=== PATIENT | female | born 1960 | race Caucasian/White ===

== ENCOUNTER 2018-03-07 05:55 | Inpatient (IN) ==
[2018-03-07] MEDS ORDERED: Chlorhexidine Gluconate 2% 1 Pack (2 Cloths) TOPICAL ONE (06:22)
[2018-03-07] MEDS ORDERED: Metoprolol Tartrate 25 MG Tablet PO ONE (06:22)
[2018-03-07] MEDS ORDERED: ceFAZolin 2 GM Premix Inj 2 GM/50 ML PIGGYBACK IV.SIG PRN (06:25)
[2018-03-07] MEDS ORDERED: Dextrose 5%/NaCl 0.9% Inj 1,000 ML IV.SIG SCH (06:30)
[2018-03-07] MEDS ORDERED: Sodium Chlor 0.9% Inj 500 ML IV.SIG SCH (07:00)
[2018-03-07] MEDS ORDERED: Sugammadex Inj 200 MG/2 ML Vial IV.PUSH ONE (07:27)
[2018-03-07] MEDS ORDERED: Famotidine PF Inj 20 MG/2 ML Vial ONE (07:40)
[2018-03-07] MEDS ORDERED: Lidocaine PF 1% Inj 5 ML Syringe OTHER ONE (08:45)
--- NOTE | 2018-03-07 09:46 | P.OP ---
- Preoperative Diagnosis (1) Diverticulitis - Postoperative Diagnosis (1) Diverticulitis Date of procedure: 03/07/18 Procedure: Cystoscopy and placement of bilateral ureteral catheters Anesthesia: GETA Surgeon: Anjel French MD Estimated blood loss (mL): 0 Pathology: none sent Operation and Findings: Urologic indication for procedures: Consulted intraoperatively to pass bilateral ureteral catheters to aid in visualization of this patient's ureters during her colorectal procedure. Urologic procedures in detail: Concurrent with the colorectal surgeon Dr. Zimmer, I proceeded with cystoscopy and placement of bilateral ureteral catheters as follows: Initially cystoscopic evaluation was performed utilizing the rigid cystoscope with the 22 Bruneian sheath and the 30 lens. Both right and left ureteral orifices were in correct anatomic position draining clear yellow urine. There was a small diverticula noted just lateral to the right orifice. There was no evidence of fistula formation, bladder tumor formation or calculi. I then proceeded with gently passing a sensor 0.035 wire up the patient's left ureter until a small amount of resistance was met. A 6 Bruneian open-ended ureteral catheter was then advanced over the wire 25 cm in a cephalad direction. With the catheter in place, the wire was withdrawn and reintroduced through secondary site by the cystoscope. In similar fashion the contralateral side was accomplished. With both catheters in place the cystoscope and guidewire were withdrawn and a 16 Bruneian 10 cc Benavides catheter was placed. Both ureteral catheters were anchored to the Benavides via a connector and all 3 catheters placed to gravity drainage. This completes the urologic surgery portion of combined procedures on this patient.
[2018-03-07] MEDS ORDERED: Naloxone Inj 0.4 MG/ML Vial IV.PUSH PRN (12:32)
[2018-03-07] MEDS ORDERED: fentaNYL Citrate Inj 100 MCG/2 ML Ampul ONE (12:41)
[2018-03-07] MEDS ORDERED: Morphine Inj 4 MG/ML Vial ONE (12:42)
[2018-03-07] MEDS ORDERED: Morphine Inj 30 MG/30 ML PCA.VIAL PCA ONE (12:51)
[2018-03-07] MEDS: Morphine Inj 30 MG/30 ML PCA.VIAL PCA PRN (13:20)
[2018-03-07] MEDS: Dextrose 5%/NaCl 0.9% Inj 1,000 ML IV.CONT SCH ×2 (13:23→20:52)
[2018-03-07 13:25] LABS: Baso # (Auto) 0.1 th/mm3 (0.0-0.2); Baso % (Auto) 0.6 % (0.0-2.0); Eos % (Auto) 0.1 % (0.0-4.0); Hematocrit 41.1 % (35.0-46.0); Hemoglobin 13.6 gm/dL (11.6-15.3); Lymph # (Auto) 0.7 th/mm3 (1.0-4.8); Lymph % (Auto) 5.1 % (9.0-44.0); Mean Corpuscular HGB Conc 33.2 % (32.0-36.0); Mean Corpuscular Hemoglobin 31.4 pg (27.0-34.0); Mean Corpuscular Volume 94.7 fL (80.0-100.0); Mean Platelet Volume 8.6 fL (7.0-11.0); Mono # (Auto) 0.2 th/mm3 (0.0-0.9); Mono % (Auto) 1.2 % (0.0-8.0); Neut # (Auto) 12.8 th/mm3 (1.8-7.7); Platelet Count 233 th/mm3 (150-450); Red Blood Count 4.35 mil/mm3 (4.00-5.30); White Blood Count 13.8 th/mm3 (4.0-11.0)
--- NOTE | 2018-03-07 13:52 | MP ---
cc: Sravani Zimmer MDKrystle LOZANO DATE OF OPERATION: 03/07/2018 PREOPERATIVE DIAGNOSIS: Chronic diverticulitis. POSTOPERATIVE DIAGNOSIS: Chronic diverticulitis. PROCEDURE PERFORMED: 1. Laparoscopic/robotic extensive lysis of adhesions. 2. Robotic sigmoid resection. SURGEON: Sravani Zimmer MD PROCESS DEVELOPMENT TECHNICIAN: Arnav ANESTHESIA: General per ET tube. ESTIMATED BLOOD LOSS: 50 mL. OPERATIVE INDICATIONS: The patient is a 57-year-old female who has a history of severe and repeated attacks of diverticulitis. OPERATIVE FINDINGS: The patient had thickening and inflammation of the mid sigmoid colon with adhesions of the sigmoid colon to the left lateral pelvic sidewall as well as anteriorly to the anterior pelvis. OPERATIVE COURSE: The patient was brought to the operating room and placed in the supine position. After induction of general anesthesia, the patient was placed in Donovan stirrups and all bony prominences were carefully padded. Dr. French then came in and performed cystoscopy with placement of bilateral ureteral catheters. Please see his operative note for details. A site was then chosen for the camera, being located 2 cm of the right and above the umbilicus. A 10/12 trocar was placed at this location, under direct vision using the laparoscope. CO2 insufflation was begun and a brief abdominal survey was then undertaken, with nothing noted that would preclude the robotic approach. The #1 port, which was a 10/12, was then placed just inside the right anterior superior iliac spine, and a #5 port was placed under the right costal margin, equidistant from the #1 and the camera port. The patient was hydroplaned with the head down and slightly to the right and the omentum was brought up and over the transverse colon and into the upper abdomen. The small bowel was then brought up and out of the pelvis and to the right and lay nicely without too much trouble. The descending colon and sigmoid colon were then evaluated and there were adhesions of the sigmoid colon to the lateral pelvic sidewall as well as the anterior pelvic peritoneum; however, I felt that there was about a 50:50 chance that we would need to take down the splenic flexure, so I elected to proceed with placing the remainder of the ports as follows: The #3 port was placed in the umbilical line, in the left anterior axillary line. The #2 port was placed 2 fingerbreadths above the umbilicus, in the left midclavicular line. The robot was then docked. The sigmoid colon was retracted down and to the left and the peritoneum was opened on the right. The dissection continued in the posterior plane until the left ureter was clearly identified and swept away from the specimen. Dissection then continued over to the lateral sidewall and as far cephalad as I could with the retraction that I was able to get at this point. A window was then made around the vessels, and a white load of the [place] [facility] stapler was then placed across the vessels, closed, held for 30 seconds, fired and removed. The dissection then continued over to the left lateral sidewall and then posteriorly down to the level of the mid to lower rectum in the midline. The lateral attachments where it was adherent to the left pelvic sidewall and the anterior pelvis were then carefully dissected free, until we had full mobility of the sigmoid colon and rectum down to the level of the mid rectum. The previous dissection was met where I had dissected in the pelvis and eventually we had full mobility and opened up the lateral stalks a little bit to allow for better anastomosis. A site was chosen for division of the rectum on the upper rectum, and the Harmonic scalpel was brought onto the field. The mesentery at this level was divided using the Harmonic scalpel. A blue load of the [place] [facility] stapler was placed across the bowel at this level, closed, fired, and removed. The 29 EEA stapler was brought onto the field and placed into the rectum and advanced, but it was not advancing nicely due to the patient's fairly small body habitus, so I elected to proceed with a 25 EEA stapler. The new stapler was brought onto the field, placed through the anus, and advanced to the rectal stump without difficulty and lay with good orientation. The lateral peritoneal attachments of the descending colon were then dissected free using electrocautery, until we had full mobility of the descending colon. The bowel was brought down and it lay nicely against the rectal stump without difficulty. All dissection beds were examined. With the exception of some bleeding at the trocar sites, there was no significant bleeding noted. The robot was then undocked. A 10-15 cm transverse incision was made in the suprapubic area. Using electrocautery, dissection was carried down to the fascia of the anterior abdominal wall, which was split the length of the skin incision. The medial fibers of the rectus abdominis muscle were then divided, using electrocautery. The posterior fascia/peritoneum was then divided the length of the skin incision. A wound protector was then placed, and the proximal stapled end of the bowel was grasped and pulled up and out through the anterior incision. A site was chosen for proximal division of the bowel, where it came down nicely to the pubic tubercle. The mesentery at this level was serially divided and ligated using 0 Vicryl ties, and a pursestring stapling device was placed across the bowel at this level. The distal bowel was amputated and taken to the back table where it was later opened and diverticulitis but no other disease was noted. At this point, the anvil was placed into the cut end of the bowel and the pursestring suture was then secured. However, there was an area that did not look quite as healthy as I would like, so I did elect to dissect back an additional 2-3 cm on the mesentery, and apply a second pursestring. The anvil was then replaced again into the cut end of the bowel and the pursestring suture was secured. This appeared more healthy. The stapler was then advanced through the anus and up to the rectal stump. The spike was advanced just posterior to the staple line, and the anvil was into the spike, being careful that the bowel was not twisted. The stapler was closed, held for 30 seconds, fired, and removed, thus creating an enteroenterotomy. The anastomosis appeared pink and healthy circumferentially and both anastomotic rings were noted to be intact. The anastomosis lay in a nice orientation without tension. Saline was then placed into the pelvis and digital pressure was held proximally. Air was insufflated in the rectum, until gentle tension was noted on the anastomosis with no sign of any leakage noted. The air was desufflated to the extent possible and the saline was suctioned out of the pelvis. The posterior fascia at the suprapubic incision was closed in a running fashion using #1 PDS. The muscle was noted to have quite a bit of oozing, so I did dust some surgical powder there. The anterior fascia was then closed in running fashion using #1 PDS and the wound was copiously irrigated with warm normal saline. The skin was then closed in a running subcuticular fashion using 3-0 Vicryl and a Tegaderm was placed. CO2 insufflation was then resumed. The omentum was brought down to lay over the anterior surface of the bowel and all dissection beds appeared without significant bleeding. The fascia at the right lower quadrant and periumbilical 10/12 ports was then closed using the crossbow device and #1 PDS suture. These were placed and held, but not secured, until the air was desufflated to the extent possible. The air was desufflated to the extent possible. The fascial sutures were then secured. A small amount of bleeding at the skin of the trocar sites was then controlled using electrocautery and the trocar sites were closed in an interrupted subcuticular fashion using 3-0 Vicryl. Steri-Strips and sterile dressing were then applied. The right ureteral stent was then removed. All sponge, needle and instrument counts were correct. The patient was returned to the postanesthesia care unit in stable condition. MD AFRICA Renteria/prashanth , 12:35 PM , 12:52 PM PILI
[2018-03-07 14:00] LABS: Calcium 8.2 mg/dL (8.5-10.1); Carbon Dioxide 24.7 meq/L (21.0-32.0); Potassium 3.3 meq/L (3.5-5.1)
[2018-03-07] MEDS: Heparin - SQ 10,000 UNITS/ML Vial SQ SCH (20:42)
[2018-03-07] MEDS: Famotidine PF Inj 20 MG/2 ML Vial IV.PUSH SCH (20:51)
[2018-03-08 05:03] LABS: Baso % (Auto) 0.2 % (0.0-2.0); Hematocrit 36.6 % (35.0-46.0); Hemoglobin 12.2 gm/dL (11.6-15.3); Lymph % (Auto) 7.4 % (9.0-44.0); Mean Corpuscular HGB Conc 33.3 % (32.0-36.0); Mean Corpuscular Hemoglobin 31.5 pg (27.0-34.0); Mean Corpuscular Volume 94.5 fL (80.0-100.0); Mean Platelet Volume 9.2 fL (7.0-11.0); Mono % (Auto) 7.3 % (0.0-8.0); Neut # (Auto) 11.8 th/mm3 (1.8-7.7); Neut % (Auto) 85.1 % (16.0-70.0); Platelet Count 214 th/mm3 (150-450); Red Blood Count 3.88 mil/mm3 (4.00-5.30); Red Cell Distribution Width 12.9 % (11.6-17.2); White Blood Count 13.9 th/mm3 (4.0-11.0)
[2018-03-08] MEDS: Dextrose 5%/NaCl 0.9% Inj 1,000 ML IV.CONT SCH ×2 (05:04→16:43)
[2018-03-08 05:39] LABS: Anion Gap 9 meq/L (5-15); Blood Urea Nitrogen 10 mg/dL (7-18); Calcium 7.7 mg/dL (8.5-10.1); Carbon Dioxide 23.6 meq/L (21.0-32.0); Chloride 110 meq/L (98-107); Glomerular Filtration Rate Greater Than 89 mL/min (>89); Glucose,Random 126 mg/dL (74-106); Potassium 3.7 meq/L (3.5-5.1); Sodium 143 meq/L (136-145)
[2018-03-08] MEDS: Morphine Inj 30 MG/30 ML PCA.VIAL PCA PRN (05:57)
[2018-03-08] MEDS: Heparin - SQ 10,000 UNITS/ML Vial SQ SCH ×2 (10:10→20:36)
[2018-03-08] MEDS: Famotidine PF Inj 20 MG/2 ML Vial IV.PUSH SCH ×2 (11:53→20:36)
[2018-03-09] MEDS: Dextrose 5%/NaCl 0.9% Inj 1,000 ML IV.CONT SCH ×2 (01:51→16:12)
[2018-03-09 04:54] LABS: Baso % (Auto) 0.6 % (0.0-2.0); Eos # (Auto) 0.1 th/mm3 (0.0-0.4); Eos % (Auto) 1.2 % (0.0-4.0); Hemoglobin 11.4 gm/dL (11.6-15.3); Lymph # (Auto) 1.8 th/mm3 (1.0-4.8); Lymph % (Auto) 21.3 % (9.0-44.0); Mean Corpuscular HGB Conc 34.4 % (32.0-36.0); Mean Corpuscular Hemoglobin 32.3 pg (27.0-34.0); Mean Platelet Volume 8.9 fL (7.0-11.0); Mono # (Auto) 0.7 th/mm3 (0.0-0.9); Mono % (Auto) 8.5 % (0.0-8.0); Neut # (Auto) 5.8 th/mm3 (1.8-7.7); Neut % (Auto) 68.4 % (16.0-70.0); Platelet Count 171 th/mm3 (150-450); Red Blood Count 3.51 mil/mm3 (4.00-5.30); Red Cell Distribution Width 12.8 % (11.6-17.2); White Blood Count 8.5 th/mm3 (4.0-11.0)
[2018-03-09 05:24] LABS: Anion Gap 9 meq/L (5-15); Blood Urea Nitrogen 6 mg/dL (7-18); Calcium 7.3 mg/dL (8.5-10.1); Carbon Dioxide 25.5 meq/L (21.0-32.0); Chloride 109 meq/L (98-107); Glomerular Filtration Rate Greater Than 89 mL/min (>89); Glucose,Random 111 mg/dL (74-106); Potassium 3.1 meq/L (3.5-5.1); Sodium 143 meq/L (136-145)
[2018-03-09 05:46] LABS: Total Protein 5.7 g/dL (6.4-8.2)
[2018-03-09] MEDS: Heparin - SQ 10,000 UNITS/ML Vial SQ SCH ×2 (08:04→20:00)
[2018-03-09] MEDS: Famotidine PF Inj 20 MG/2 ML Vial IV.PUSH SCH ×2 (08:04→20:00)
--- NOTE | 2018-03-09 10:33 | P.PNCS ---
Subjective Colorectal Surgery Post Op Day #: 2 Interval history: afebrile, VSS UO good flavio some liq Objective Result Diagrams: 03/09/18 03:55 03/09/18 03:55 Objective Remarks: PE alert Abd - soft, flat, wound dry, no flatus stent dc'd Assessment and Plan - Plan Imp: adv diet DC crane decr IVF tx to floor
[2018-03-10] MEDS: Dextrose 5%/NaCl 0.9% Inj 1,000 ML IV.CONT SCH ×2 (03:45→05:09)
[2018-03-10] MEDS: Heparin - SQ 10,000 UNITS/ML Vial SQ SCH ×2 (09:30→20:00)
[2018-03-10] MEDS: Famotidine PF Inj 20 MG/2 ML Vial IV.PUSH SCH (09:30)
[2018-03-10 18:00] VITALS: RESP 18
--- NOTE | 2018-03-10 21:19 | P.PNCS ---
Subjective Colorectal Surgery Post Op Day #: 3 Interval history: afebrile, VSS UO good flavio PO freq BM Objective Result Diagrams: 03/09/18 03:55 03/09/18 03:55 Objective Remarks: PE alert Abd - soft, flat, wound dry, Assessment and Plan - Plan Imp: adv diet DC crane decr IVF DC plans
[2018-03-11] MEDS: Heparin - SQ 10,000 UNITS/ML Vial SQ SCH (08:51)
[2018-03-11 09:23] VITALS: BP 130/82; PULSE 73; TEMP 98.3; O2SAT 94
--- NOTE | 2018-03-27 18:49 | MD ---
cc: Sravani Zimmer MD DATE OF DISCHARGE: 03/11/2018 ADMISSION DIAGNOSES: 1. Diverticulitis. 2. Gastroesophageal reflux disease. DISCHARGE DIAGNOSES: 1. Diverticulitis. 2. Gastroesophageal reflux disease. PROCEDURES: 1. Cystoscopy with placement of bilateral ureteral catheters. 2. Laparoscopic/robotic extensive lysis of adhesions. 3. Robotic sigmoid resection. HOSPITAL COURSE: The patient is a 57-year-old female with a history of severe and repeated attacks of diverticulitis. She was admitted to the hospital on 03/07/2018. After an outpatient bowel prep, she was taken to the operating room where she underwent the above-named procedures. Postoperatively, the patient did well with rapid return of bowel and bladder function: She was discharged to home on 03/11/2018 with instruction of followup with myself in the office. Final pathology was not available at the time of discharge. MD AFRICA Renteria/emmie , 05:05 PM , 05:11 PM
--- NOTE | 2018-04-01 10:45 | MD ---
cc: Sravani Zimmer MD DATE OF DISCHARGE: 03/11/2018 ADMISSION DIAGNOSES: 1. Diverticulitis. 2. Gastroesophageal reflux disease. DISCHARGE DIAGNOSES: 1. Diverticulitis. 2. Gastroesophageal reflux disease. PROCEDURES: 1. Cystoscopy and placement of bilateral catheters. 2. Laparoscopic/robotic extensive lysis of adhesions with robotic sigmoid resection. HOSPITAL COURSE: The patient is a 57-year-old female with a history of severe and repeated attacks of diverticulitis. She was admitted to the hospital on 03/07/2018 after an outpatient bowel prep. She was taken to the operating room where she underwent the above-named procedures. Postoperatively, she did well with rapid return of bowel and bladder function. She was discharged home on postoperative day #3 with instructions to followup myself in the office. Sravani Zimmer MD KW/ld , 10:21 AM , 10:27 AM
== END 2018-03-11 11:18 | disposition home or self-care (01) ==
LOC: HSDC 05:55 → EDSTATUS 08:30 → HSDI 12:44 → HCPC 13:12 → N07 03-09 12:03
PROVIDERS: ADMIT Colon & Rectal Surgery; ATTEND Colon & Rectal Surgery